=== PATIENT | female | born 2000 | race American Indian/Alaskan Native ===

== ENCOUNTER 2019-05-14 16:16 | Emergency (ER) | payer OTHER, BC ==
--- NOTE | 2019-05-14 16:46 | Event Note ---
ED Screening Note Date of service: 05/14/19 Time: 16:45 ED Screening Note: Pt complains of lower abdominal pain x 2 weeks worsening +preg test at PCP office yesterday denies vaginal bleeding or discharge +urinary frequency This initial assessment/diagnostic orders/clinical plan/treatment(s) is/are subject to change based on patients health status, clinical progression and re- assessment by fellow clinical providers in the ED. Further treatment and workup at subsequent clinical providers discretion. Patient/guardian urged not to elope from the ED as their condition may be serious if not clinically assessed and managed. Initial orders include: US labs
[2019-05-14 17:11] LABS: Bacteria,Urine 1+ /HPF (Negative); Bilirubin,Urine NEG (Negative); Blood,Urine NEG (Negative); Color,Urine Straw (Yellow); Protein,Urine <15 mg/dL mg/dL (Negative); Urobilinogen,Urine < 2.0 mg/dL (<2.0)
[2019-05-14 17:14] LABS: HCG Qualitative,Urine Positive (Negative)
[2019-05-14 17:26] LABS: Basophils % (Auto) 0.3 % (0.0-1.8); Eosinophils % (Auto) 0.2 % (0.0-4.3); Hematocrit 42.9 % (30.3-42.9); Lymphocytes # (Auto) 1.9 K/mm3 (1.2-5.4); Mean Corpuscular HGB Conc 33 % (30-34); Mean Corpuscular Volume 84 fl (79-97); Monocytes # (Auto) 0.5 K/mm3 (0.0-0.8); Monocytes % (Auto) 4.5 % (0.0-7.3); Platelet Count 301 K/mm3 (140-440); Red Cell Distribution Width 13.8 % (13.2-15.2)
[2019-05-14 17:50] LABS: BUN/Creatinine Ratio 7; Blood Urea Nitrogen 5 mg/dL (7-17); Calcium 10.1 mg/dL (8.4-10.2); Hemolysis Index 12
--- NOTE | 2019-05-14 18:14 | Ultrasound Report ---
ULTRASOUND OBSTETRIC INDICATION / CLINICAL INFORMATION: pain in . Clinical Gestational Age (GA): 4 weeks 5 days by last menstrual period TECHNIQUE: Transabdominal and Transvaginal. COMPARISON: None available. FINDINGS: GESTATIONAL SAC: Not identified. The uterus has an unremarkable appearance with overall dimensions of 7 x 2.9 x 5.4 cm and with endometrial stripe measuring 8 mm. ADNEXA: No significant abnormality. FREE FLUID: None. ADDITIONAL FINDINGS: None. IMPRESSION: No intrauterine gestational sac is identified. This may be due to the early stage of but is considered a of unknown location (ectopic remains in the differential). Close cl inical follow-up with serial monitoring of beta hCG is recommended, with repeat ultrasound as needed. Signer Name: Karan Stearns MD Signed: 05/14/2019 6:10 PM Workstation Name: [id number]
--- NOTE | 2019-05-14 22:05 | Emergency Department Report ---
ED Abdominal Pain HPI - General Chief Complaint: Abdominal Pain Stated Complaint: ABD PAIN Time Seen by Provider: 05/14/19 16:42 Source: patient Mode of arrival: Ambulatory Limitations: No Limitations - History of Present Illness Initial Comments: Patient is a A0 19-year-old [place] female who is approximately 4-5 weeks gestation presents to the ED with acute onset persistent suprapubic pain with urinary frequency for the last 2 weeks. Patient states that she had a positive test at her primary care physician's office 2 days ago and that has suprapubic pain got worse in the last 12 hours. Patient denies vaginal bleeding, vaginal discharge, dysuria, nausea, vomiting, diarrhea, dyspareunia, low back pain, fever, chills, cough, sore throat or dizziness and headache. MD Complaint: abdominal pain, other (pelvic pain) -: Sudden, week(s) (2) Location: suprapubic Radiation: none Migration to: no migration Severity scale (0 -10): 5 Quality: cramping, aching, sharp Consistency: constant Improves With: nothing Worsens With: nothing Associated Symptoms: denies other symptoms, anorexia. denies: nausea, vomiting, diarrhea, fever, chills, constipation, dysuria, hematemesis, hematochezia, melena, hematuria, syncope, other - Related Data LMP Date: 04/11/19 Previous Rx's Medication Instructions Recorded Last Taken Type Acetaminophen [Tylenol] 1,000 mg PO Q6HR #30 tablet 05/14/19 Unknown Rx Allergies Allergy/AdvReac Type Severity Reaction Status Date / Time No Known Allergies Allergy Unverified 05/14/19 16:21 ED Review of Systems ROS: Stated complaint: ABD PAIN Other details as noted in HPI Constitutional: denies: chills, fever Eyes: denies: eye pain, eye discharge, vision change ENT: denies: ear pain, throat pain Respiratory: denies: cough, shortness of breath, wheezing Cardiovascular: denies: chest pain, palpitations Endocrine: no symptoms reported Gastrointestinal: abdominal pain (suprapubic). denies: nausea, vomiting, diarrhea, hematemesis Genitourinary: denies: urgency, dysuria, frequency, hematuria, discharge, dyspareunia Musculoskeletal: denies: back pain, joint swelling, arthralgia Skin: denies: rash, lesions Neurological: denies: headache, weakness, paresthesias Psychiatric: denies: anxiety, depression Hematological/Lymphatic: denies: easy bleeding, easy bruising ED Past Medical Hx - Past Medical History Previous Medical History?: No - Surgical History Past Surgical History?: No - Social History Smoking Status: Never Smoker Substance Use Type: None - Medications Home Medications: Home Medications Medication Instructions Recorded Confirmed Last Taken Type Acetaminophen [Tylenol] 1,000 mg PO Q6HR #30 tablet 05/14/19 Unknown Rx ED Physical Exam - General Limitations: No Limitations General appearance: alert, in no apparent distress - Head Head exam: Present: atraumatic, normocephalic, normal inspection - Eye Eye exam: Present: normal appearance, PERRL, EOMI Pupils: Present: normal accommodation - ENT ENT exam: Present: normal exam, normal orophraynx, mucous membranes moist, TM's normal bilaterally, normal external ear exam - Neck Neck exam: Present: normal inspection, full ROM. Absent: tenderness, meningismus, lymphadenopathy, thyromegaly - Respiratory Respiratory exam: Present: normal lung sounds bilaterally. Absent: respiratory distress, wheezes, rales, chest wall tenderness, accessory muscle use, decreased breath sounds, prolonged expiratory - Cardiovascular Cardiovascular Exam: Present: normal rhythm, tachycardia, normal heart sounds. Absent: systolic murmur, diastolic murmur, rubs, gallop - GI/Abdominal GI/Abdominal exam: Present: soft, tenderness (suprapubic), normal bowel sounds. Absent: guarding, rebound, hyperactive bowel sounds, hypoactive bowel sounds, organomegaly - Bi-manual exam: Present: other (Deferred pelvic exam) - Extremities Exam Extremities exam: Present: normal inspection, full ROM, normal capillary refill - Back Exam Back exam: Present: normal inspection, full ROM. Absent: tenderness, CVA tenderness (R), CVA tenderness (L), muscle spasm, paraspinal tenderness, vertebral tenderness - Neurological Exam Neurological exam: Present: alert, oriented X3, CN II-XII intact, normal gait, reflexes normal - Psychiatric Psychiatric exam: Present: normal affect, normal mood - Skin Skin exam: Present: warm, dry, intact, normal color. Absent: rash ED Course Vital Signs 05/14/19 16:21 Temperature 98.4 F Pulse Rate 121 H Respiratory 22 Rate Blood Pressure 145/93 O2 Sat by Pulse 98 Oximetry ED Medical Decision Making - Lab Data Result diagrams: 05/14/19 17:13 05/14/19 17:13 - Radiology Data Radiology results: report reviewed, image reviewed Findings [facility] [address] [place] [address] Ultrasound Report Signed Patient: SUSANNA NGUYEN MR#: [id number] : 2000 Acct:[id number] Age/Sex: 19 / F ADM Date: 05/14/19 Loc: ED Attending Dr: Ordering Physician: ALYSHA PALOMARES Date of Service: 05/14/19 Procedure(s): US OB transvaginal Accession Number(s): [id number] cc: ALYSHA PALOMARES ULTRASOUND OBSTETRIC INDICATION / CLINICAL INFORMATION: pain in . Clinical Gestational Age (GA): 4 weeks 5 days by last menstrual period TECHNIQUE: Transabdominal and Transvaginal. COMPARISON: None available. FINDINGS: GESTATIONAL SAC: Not identified. The uterus has an unremarkable appearance with overall dimensions of 7 x 2.9 x 5.4 cm and with endometrial stripe measuring 8 mm. ADNEXA: No significant abnormality. FREE FLUID: None. ADDITIONAL FINDINGS: None. IMPRESSION: No intrauterine gestational sac is identified. This may be due to the early stage of but is considered a of unknown location (ectopic remains in the differential). Close clinical follow-up with serial monitoring of beta hCG is recommended, with repeat ultrasound as needed. Signer Name: Karan Stearns MD Signed: 05/14/2019 6:10 PM Workstation Name: [id number] Transcribed By: DMB Dictated By: Karan Stearns MD Electronically Authenticated By: Karan Stearns MD Signed Date/Time: 05/14/191809 DD/ 06 TD/TT: - Medical Decision Making This is a 19-year-old female who is approximately 4 weeks gestation who presented to the ED with acute onset persistent pelvic pain for 2 weeks. In the ED, patient is alert and oriented 3 and is not in distress. Lab test results were reviewed and show hCG Quant of 615.8. Urinalysis also showed a positive hCG test, otherwise normal urinalysis with no bleeding. Patient was treated for pain in the ED. Transvaginal ultrasound shows no intrauterine gestational sac is identified. This may be due to the early stage of but is considered a of unknown location (ectopic remains in the differential). Close clinical follow-up with serial monitoring of beta hCG is recommended, with repeat ultrasound as needed. Patient was therefore discharged home since she has not had any VULNERABILITY ASSESSMENT ANALYST follow-up, patient was advised to return to the ED within 48 hours for repeat serial hCG Quant test to monitor the patient's . Patient was otherwise advised to maintain a complete pelvic rest and take Tylenol as needed for pain. Patient was advised return to the ED immediately if her symptoms get worse. - Differential Diagnosis Ectopic ; UTI; Ovarian cyst; Early Critical care attestation.: If time is entered above; I have spent that time in minutes in the direct care of this critically ill patient, excluding procedure time. ED Disposition Clinical Impression: Abdominal pain in Qualifiers: Trimester: first trimester Qualified Code(s): O26.891 - Other specified related conditions, first trimester; R10.9 - Unspecified abdominal pain Disposition: TO HOME OR SELFCARE Is pt being admited?: No Does the pt Need Aspirin: No Condition: Stable Instructions: Abdominal Pain in (ED) Additional Instructions: Maintain a complete pelvic rest, take pain medication as needed with food, drink plenty of fluids and follow-up with your VULNERABILITY ASSESSMENT ANALYST physician in 2-3 days for reevaluation. Otherwise return to the ED in 2 days on Thursday for repeat hCG Quant studies test. Prescriptions: Acetaminophen [Tylenol] 1,000 mg PO Q6HR #30 tablet Referrals: HEMANT MEMBRENO MD [Staff Physician] - 2-3 Days Time of Disposition: 22:04 Print Language: BULGARIAN
[2019-05-14] MEDS ORDERED: ACETAMINOPHEN 500 MG TAB PO ONE (22:06)
[2019-05-14 22:23] VITALS: BP 104/59
== END 2019-05-14 22:37 | disposition home or self-care (01) ==
LOC: ED 16:16
DX: O26.891 Other specified pregnancy related conditions, first trimester (principal); R10.30 Lower abdominal pain, unspecified; Z79.899 Other long term (current) drug therapy; Z3A.01 Less than 8 weeks gestation of pregnancy
CPT/HCPCS: 36415; 76801; 76817; 80048; 81001; 81025; 84702; 85025

== ENCOUNTER 2019-05-16 10:07 | Emergency (ER) | payer OTHER, BC ==
[2019-05-16 10:17] VITALS: BP 123/63
--- NOTE | 2019-05-16 10:28 | Event Note ---
ED Screening Note ED Screening Note: N/V that yesterday LNMP april 11, 2019 currently was evaluated in the ED two days no diarrhea This initial assessment/diagnostic orders/clinical plan/treatment(s) is/are subject to change based on patients health status, clinical progression and re- assessment by fellow clinical providers in the ED. Further treatment and workup at subsequent clinical providers discretion. Patient/guardian urged not to elope from the ED as their condition may be serious if not clinically assessed and managed. Initial orders include: labs, meds
[2019-05-16] MEDS ORDERED: SODIUM CHLORIDE 0.9% 1000 ML 1,000 ML IV ONE ×2 (10:30→11:38)
[2019-05-16] MEDS ORDERED: METOCLOPRAMIDE 10 MG/2 ML INJ IV ONE (10:30)
[2019-05-16 10:54] LABS: Basophils % (Auto) 0.2 % (0.0-1.8); Hematocrit 43.3 % (30.3-42.9); Hemoglobin 14.3 gm/dl (10.1-14.3); Lymphocytes # (Auto) 1.6 K/mm3 (1.2-5.4); Lymphocytes % (Auto) 12.1 % (13.4-35.0); Mean Corpuscular HGB Conc 33 % (30-34); Mean Corpuscular Volume 83 fl (79-97); Monocytes # (Auto) 0.9 K/mm3 (0.0-0.8); Monocytes % (Auto) 6.8 % (0.0-7.3); Platelet Count 342 K/mm3 (140-440); Red Blood Count 5.21 M/mm3 (3.65-5.03); Red Cell Distribution Width 13.9 % (13.2-15.2)
[2019-05-16] MEDS ORDERED: diphenhydrAMINE 50 MG/ML VIAL IV ONE (10:54)
[2019-05-16] MEDS ORDERED: ONDANSETRON 4 MG/2 ML INJ IV ONE (10:54)
[2019-05-16 11:24] LABS: Alanine Aminotransferase 18 units/L (7-56); Albumin 5.2 g/dL (3.9-5); BUN/Creatinine Ratio 13; Blood Urea Nitrogen 9 mg/dL (7-17); Calcium 10.2 mg/dL (8.4-10.2); Hemolysis Index 10
--- NOTE | 2019-05-16 11:41 | Emergency Department Report ---
ED General Adult HPI - General Chief complaint: Nausea/Vomiting/Diarrhea Stated complaint: VOMITING/STOMACH PAIN Time Seen by Provider: 05/16/19 10:27 Source: patient Mode of arrival: Ambulatory Limitations: No Limitations - History of Present Illness Initial comments: The patient presents to the emergency department with a chief complaint of nausea and vomiting that has been present for the last week. Patient states she recently found out she was and seen here 2 days ago for the same symptomology. Patient states she has not seen an labview programmer as of yet but is trying to get into see one. Patient denies any vaginal bleeding, vaginal d ischarge, abdominal pain, or pelvic pain. This is the patient's first . -: Sudden Severity scale (0 -10): 0 Consistency: constant Improves with: none Worsens with: none Associated Symptoms: denies other symptoms Treatments Prior to Arrival: none - Related Data Previous Rx's Medication Instructions Recorded Last Taken Type Acetaminophen [Tylenol] 1,000 mg PO Q6HR #30 tablet 05/14/19 Unknown Rx Ondansetron [Zofran Odt] 4 mg PO Q4HR PRN #20 tab.rapdis 05/16/19 Unknown Rx Allergies Allergy/AdvReac Type Severity Reaction Status Date / Time No Known Allergies Allergy Unverified 05/14/19 16:21 ED Review of Systems ROS: Stated complaint: VOMITING/STOMACH PAIN Other details as noted in HPI Comment: All other systems reviewed and negative Constitutional: denies: chills, fever Eyes: denies: eye pain, eye discharge, vision change ENT: denies: ear pain, throat pain Respiratory: denies: cough, shortness of breath, wheezing Cardiovascular: denies: chest pain, palpitations Endocrine: no symptoms reported Gastrointestinal: nausea, vomiting. denies: abdominal pain, diarrhea Genitourinary: denies: urgency, dysuria, discharge Musculoskeletal: denies: back pain, joint swelling, arthralgia Skin: denies: rash, lesions Neurological: denies: headache, weakness, paresthesias Psychiatric: denies: anxiety, depression Hematological/Lymphatic: denies: easy bleeding, easy bruising ED Past Medical Hx - Past Medical History Previous Medical History?: No - Surgical History Past Surgical History?: No - Social History Smoking Status: Never Smoker Substance Use Type: None - Medications Home Medications: Home Medications Medication Instructions Recorded Confirmed Last Taken Type Acetaminophen [Tylenol] 1,000 mg PO Q6HR #30 tablet 05/14/19 Unknown Rx Ondansetron [Zofran Odt] 4 mg PO Q4HR PRN #20 tab.rapdis 05/16/19 Unknown Rx ED Physical Exam - General Limitations: No Limitations General appearance: alert, in no apparent distress - Head Head exam: Present: atraumatic, normocephalic - Eye Eye exam: Present: normal appearance - ENT ENT exam: Present: mucous membranes dry - Neck Neck exam: Present: normal inspection - Respiratory Respiratory exam: Present: normal lung sounds bilaterally. Absent: respiratory distress - Cardiovascular Cardiovascular Exam: Present: normal rhythm, tachycardia. Absent: systolic murmur, diastolic murmur, rubs, gallop - GI/Abdominal GI/Abdominal exam: Present: soft, normal bowel sounds. Absent: distended, tend erness - Extremities Exam Extremities exam: Present: normal inspection - Back Exam Back exam: Present: normal inspection - Neurological Exam Neurological exam: Present: alert, oriented X3, CN II-XII intact. Absent: motor sensory deficit - Psychiatric Psychiatric exam: Present: normal affect, normal mood - Skin Skin exam: Present: warm, dry, intact, normal color. Absent: rash ED Course Vital Signs 05/16/19 10:14 Temperature 98.2 F Pulse Rate 94 H Respiratory 18 Rate Blood Pressure 123/63 O2 Sat by Pulse 97 Oximetry ED Medical Decision Making - Lab Data Result diagrams: 05/16/19 10:43 05/16/19 10:43 Lab Results 05/16/19 05/16/19 05/16/19 Range/Units 10:43 10:43 10:43 WBC 13.6 H (4.5-11.0) K/mm3 RBC 5.21 H (3.65-5.03) M/mm3 Hgb 14.3 (10.1-14.3) gm/dl Hct 43.3 H (30.3-42.9) % MCV 83 (79-97) fl MCH 28 (28-32) pg MCHC 33 (30-34) % RDW 13.9 (13.2-15.2) % Plt Count 342 (140-440) K/mm3 Lymph % (Auto) 12.1 L (13.4-35.0) % [place] % (Auto) 6.8 (0.0-7.3) % Eos % (Auto) 0.0 (0.0-4.3) % Baso % (Auto) 0.2 (0.0-1.8) % Lymph # 1.6 (1.2-5.4) K/mm3 [place] # 0.9 H (0.0-0.8) K/mm3 Eos # 0.0 (0.0-0.4) K/mm3 Baso # 0.0 (0.0-0.1) K/mm3 Seg Neutrophils % 80.9 H (40.0-70.0) % Seg Neutrophils # 11.0 H (1.8-7.7) K/mm3 Sodium 139 (137-145) mmol/L Potassium 3.6 (3.6-5.0) mmol/L Chloride 101.1 (98-107) mmol/L Carbon Dioxide 18 L (22-30) mmol/L Anion Gap 24 mmol/L BUN 9 (7-17) mg/dL Creatinine 0.7 (0.7-1.2) mg/dL Estimated GFR > 60 ml/min BUN/Creatinine Ratio 13 % Glucose 111 H (65-100) mg/dL Calcium 10.2 (8.4-10.2) mg/dL Total Bilirubin 1.20 (0.1-1.2) mg/dL AST 19 (5-40) units/L ALT 18 (7-56) units/L Alkaline Phosphatase 64 (35-129) units/L Total Protein 8.6 H (6.3-8.2) g/dL Albumin 5.2 H (3.9-5) g/dL Albumin/Globulin Ratio 1.5 % Lipase 36 (13-60) units/L HCG, Quant 1210 H (0-4) mIU/mL - Medical Decision Making Discussed results with patient HCG level showed appropriate gains Patient struck to the follow with DEPARTMENT CLERK Patient asked and required about holistic physicians Discussed the patient this is something she will likely have to speak to her DEPARTMENT CLERK about. Critical care attestation.: If time is entered above; I have spent that time in minutes in the direct care of this critically ill patient, excluding procedure time. ED Disposition Clinical Impression: Nausea and vomiting, Disposition: DC- TO HOME OR SELFCARE Is pt being admited?: No Does the pt Need Aspirin: No Condition: Stable Instructions: Acute Nausea and Vomiting (ED), Morning Sickness (ED), (ED) Additional Instructions: return if worse Referrals: PRIMARY CARE, [Primary Care Provider] - 3-5 Days [facility] [Provider Group] - 3-5 Days [facility] [Provider Group] - 3-5 Days Time of Disposition: 12:11
== END 2019-05-16 12:30 | disposition home or self-care (01) ==
LOC: ED 10:07
DX: O21.9 Vomiting of pregnancy, unspecified (principal); Z3A.01 Less than 8 weeks gestation of pregnancy
CPT/HCPCS: 36415; 80053; 83690; 84702; 85025; 96361; 96374; 96375; 99283; J1200; J2405; J2765; J7030